=== PATIENT | female | born 1980 | race Hispanic/Latino ===

== ENCOUNTER 2020-12-09 15:35 | Inpatient (IN) | payer MEDICARE ==
[2020-12-12 12:18] VITALS: BP 134/96
== END 2020-12-12 15:25 | disposition home or self-care (01) | DRG 389 ==
LOC: ED 15:35 → OBSVTOIN 12-10 01:05 → 3B-SURG 12-10 01:05
PROVIDERS: ADMIT Hospitalist; ATTEND Internal Medicine
DX: K56.7 Ileus, unspecified (principal); K50.90 Crohn's disease, unspecified, without complications; K52.9 Noninfective gastroenteritis and colitis, unspecified; D72.829 Elevated white blood cell count, unspecified; F17.200 Nicotine dependence, unspecified, uncomplicated; Z90.710 Acquired absence of both cervix and uterus; Z90.49 Acquired absence of other specified parts of digestive tract; Z91.19 Patient's noncompliance with other medical treatment and regimen; Z88.8 Allergy status to other drugs, medicaments and biological substances
CPT/HCPCS: 36415; 74177; 80048; 80053; 81001; 83690; 85007; 85025; 85027; 94640; 94760; 99406; G0378; J1170; J1644; J1956; J2405; J2543; J7030; Q9967